=== PATIENT | female | born 1985 | race Caucasian/White ===

== ENCOUNTER 2020-12-14 18:48 | Emergency (ER) | payer MEDICAID ==
[~2020-12-14] VITALS: Ht 162.6 cm; Wt 63.5 kg
--- NOTE | 2020-12-14 18:48 | NUR ---
Patient to ER bed h1 to gown for evaluation. Side rails up.
[2020-12-14 18:58] VITALS: BP_SYST 146
--- NOTE | 2020-12-14 20:22 | NUR ---
Patient BIB by [facility]. C/O medical clearance x today. A/O,X4, no pain, vss.
--- NOTE | 2020-12-14 20:26 | NUR ---
ANTONY Dominguez at bedside examining patient.
--- NOTE | 2020-12-14 20:56 | NUR ---
Abhishek talbert in [facility] - 12/14/20 at 2220 by [email or web address] Patient left without being seen.
--- NOTE | 2020-12-14 20:56 | NUR ---
Patient D/C to custody with [facility].
== END 2020-12-14 20:56 ==
LOC: SED 18:48
DX: S02.2XXA Fracture of nasal bones, initial encounter for closed fracture (principal); H72.90 Unspecified perforation of tympanic membrane, unspecified ear; Y04.0XXA Assault by unarmed brawl or fight, initial encounter; Y93.89 Activity, other specified; Y92.89 Other specified places as the place of occurrence of the external cause; Y99.8 Other external cause status
CPT/HCPCS: 99283